=== PATIENT | male | born 1955 | race Caucasian/White ===

== ENCOUNTER 2018-06-26 22:00 | Inpatient (IN) ==
[2018-06-26] MEDS ORDERED: NITROGLYCERIN SL 0.4 MG/TAB TAB ONE (22:13)
[2018-06-26] MEDS: NITROGLYCERIN SL 0.4 MG/TAB TAB SL PRN ×3 (22:15→22:25)
[2018-06-26 22:25] LABS: Basophils # (auto) 0.09 K/uL (0-0.2); Basophils % (auto) 1.1 %; Hematocrit (blood only) 30.2 % (42-52); Hemoglobin 9.9 g/dL (14.0-18.0); Immature Granulocytes # (auto) 0.02 K/uL (0.00-0.02); Immature Granulocytes % (auto) 0.2 %; Lymphocytes # (auto) 2.76 K/uL (1.2-3.4); Lymphocytes % (auto) 32.9 %; Mean Corpuscular Hgb Conc 32.8 g/dL (32-36); Mean Corpuscular Volume 76.1 fL (80-100); Mean Platelet Volume 8.2 fL (7.4-10.4); Monocytes # (auto) 0.67 K/uL (0.11-0.59); Neutrophils # (auto) 4.35 K/uL (1.4-6.5); Neutrophils % (auto) 51.8 %; Platelet Count 474 K/uL (130-400); RDW Coefficient of Variation 17.1 % (11.5-14.5); RDW Standard Deviation 47.6 fL (36.4-46.3); Red Blood Count 3.97 M/uL (4.7-6.1); White Blood Count 8.39 K/uL (4.8-10.8)
--- NOTE | 2018-06-26 22:26 | XRay Report ---
XR chest 1V portable CLINICAL HISTORY: R/o OK chest pain COMPARISON STUDY: No previous studies for comparison. FINDINGS: The bones soft tissues and hemidiaphragms are normal. The cardiomediastinal silhouette is n ormal. The lungs are clear. The pulmonary vasculature is normal. IMPRESSION: Negative chest. The above report was generated using voice recognition software. It may contain grammatical, syntax or spelling errors. Electronically signed by: Luis Milner M.D. 06/26/2018 10:25 PM
[2018-06-26] MEDS ORDERED: ASPIRIN CHEW 324 MG PO STA (22:27)
[2018-06-26 22:32] LABS: iSTAT Creatinine 0.8 mg/dl (0.6-1.3); iSTAT Hemoglobin 10.9 g/dl (14.0-18.0); iSTAT Ionized Calcium 1.21 mmol/l (1.12-1.32)
[2018-06-26 22:46] LABS: Alanine Aminotransferase 22 U/L (12-78); Aspartate Aminotransferase 19 U/L (15-37); Blood Urea Nitrogen 15 mg/dl (7-18); Calcium 9.3 mg/dl (8.5-10.1); Carbon Dioxide 25 mmol/L (21-32); Chloride 105 mmol/L (98-107); Creatinine Clr Calc Pharmacy 83.3 ml/min; Est GFR (African American) 111.2; Est GFR (Non-African American) 95.9; Glucose 93 mg/dl (70-99); Sodium 138 mmol/L (136-145)
[2018-06-26 22:51] LABS: Albumin Globulin Ratio 1.2 (0.9-2); Alkaline Phosphatase 84 U/L (45-117); Bilirubin,Total 0.2 mg/dl (0.2-1); Globulin 3.5 gm/dl (2.5-4.0); Total Protein 7.5 gm/dl (6.4-8.2); Troponin I < 0.015 ng/ml (0-0.045)
[2018-06-26] MEDS ORDERED: Heparin IV Low Dose WITH Bolus IV STA (22:51)
[2018-06-26] MEDS ORDERED: NITROGLYCERIN SL 0.4 MG/TAB TAB SL STA (23:05)
[2018-06-26 23:13] LABS: INR 1.1 (0.9-1.1); Partial Thromboplastin Ratio 0.8; Partial Thromboplastin Time 22.6 Seconds (21.0-31.0); Prothrombin Time 10.9 Seconds (9.0-12.0)
[2018-06-26] MEDS ORDERED: HEPARIN SOD (PORCINE) 1000 UNIT/ML 10 ML VIAL ONE (23:22)
[2018-06-26] MEDS ORDERED: HEPARIN 25000 UNIT/500 ML D5W IV ONE (23:22)
[2018-06-26] MEDS: NITROGLYCERIN/D5W 100MCG/ML 250 ML IV SCH (23:32)
--- NOTE | 2018-06-27 01:27 | Emergency Department Note ---
Entered by Shara Rider acting as a scribe for Herve Dao MD History of Present Illness General Chief complaint: Chest Pain Stated complaint: CHEST PAIN Source: patient Mode of arrival: ambulatory Limitations: no limitations History of Present Illness Provider complaint: Chest pain Onset (ago): hour(s) (around 1400 today) Location: chest (central) Radiation: neck (throat) and extremity (bilateral arms) Pain Consistency: + other (worsening) Current Pain Intensity: 7 Quality: + other (pain, pressure) Associated symptoms: + other (Denies: leg pain/swelling); no cough and no fever/chills Treatments prior to arrival: other (nitroglycerin) The patient is a 63 year old male with no significant past medical history who presents to the Emergency Room with complaints of worsening central chest pain starting around 1400 today. The patient reports that his chest pain radiated d own his bilateral arms and up into his throat. He states that taking nitroglycerin helped to alleviate his pain. He notes that he subsequently went to sleep but woke up around 2130 with pain again which taking nitroglycerin an hour prior to arrival failed to relieve. He reports that his pain is currently a 7/10 and that he feels as if "something is sitting on his chest." He denies any fevers, cough, and leg pain/swelling. He notes that he takes a baby aspirin every morning and that he had a stress test performed in [place] last week but has not yet received its results. Home Medications Home Medications Medication Instructions Recorded Confirmed Type 2 Unknown Meds 1 tab PO UD 06/26/18 06/26/18 History Bp Med 1 tab PO DAILY 06/26/18 06/26/18 History omeprazole 0 mg PO DAILY 06/26/18 06/26/18 History Allergies Allergy/AdvReac Type Severity Reaction Status Date / Time No Known Allergies Allergy Unverified 06/26/18 23:05 Past Med/Surg History Medical History No significant past medical history Social History Preferred Language: Georgian marital status: current occupational status: employed Feels Safe at Home: Yes Smoking Status: Current every day smoker Review of Systems See HPI for pertinent positives & negatives. and A total of 10 systems reviewed and were otherwise negative Physical Exam Vital Signs Vital Signs - 24 hr 06/26/18 22:09 06/26/18 22:10 06/26/18 22:15 Temperature 36.6 C Temperature Source Oral Sepsis Recent Fever Within 48 Hours No Sepsis New/Unexplained Change in Mental Status No Sepsis Action Taken by Nursing No Action Required Pulse Rate 89 Pulse Rate [Apical] 88 88 Pulse Rate from SpO2 Sensor Respiratory Rate 18 22 18 Respiratory Effort / Characteristics Non-Labored Spontaneous Non-Labored Spontaneous Respiratory Depth Normal Normal Respiratory Pattern Regular Regular Blood Pressure 163/101 H Blood Pressure [Left Arm] 163/101 H 146/97 H Blood Pressure Mean 121 Blood Pressure Mean [Left Arm] 121 113 Blood Pressure Position [Left Arm] Sitting Sitting Pulse Oximetry 100 99 100 Oxygen Delivery Method Room Air Room Air 06/26/18 22:24 06/26/18 22:30 06/26/18 23:00 Temperature Temperature Source Sepsis Recent Fever Within 48 Hours Sepsis New/Unexplained Change in Mental Status Sepsis Action Taken by Nursing Pulse Rate 88 Pulse Rate [Apical] 82 91 H Pulse Rate from SpO2 Sensor 88 Respiratory Rate 18 18 16 Respiratory Effort / Characteristics Non-Labored Spontaneous Non-Labored Spontaneous Respiratory Depth Normal Normal Respiratory Pattern Regular Regular Blood Pressure Blood Pressure [Left Arm] 131/79 125/76 Blood Pressure Mean Blood Pressure Mean [Left Arm] 96 92 Blood Pressure Position [Left Arm] Sitting Sitting Pulse Oximetry 95 95 99 Oxygen Delivery Method Room Air Room Air 06/26/18 23:02 06/26/18 23:05 06/26/18 23:10 Temperature Temperature Source Sepsis Recent Fever Within 48 Hours Sepsis New/Unexplained Change in Mental Status Sepsis Action Taken by Nursing Pulse Rate 86 87 87 Pulse Rate [Apical] Pulse Rate from SpO2 Sensor 88 85 80 Respiratory Rate 19 19 25 H Respiratory Effort / Characteristics Respiratory Depth Respiratory Pattern Blood Pressure 138/85 124/76 Blood Pressure [Left Arm] Blood Pressure Mean 102 92 Blood Pressure Mean [Left Arm] Blood Pressure Position [Left Arm] Pulse Oximetry 99 99 96 Oxygen Delivery Method 06/26/18 23:11 06/26/18 23:15 06/26/18 23:16 Temperature Temperature Source Sepsis Recent Fever Within 48 Hours Sepsis New/Unexplained Change in Mental Status Sepsis Action Taken by Nursing Pulse Rate 89 87 82 Pulse Rate [Apical] Pulse Rate from SpO2 Sensor Respiratory Rate 21 17 21 Respiratory Effort / Characteristics Respiratory Depth Respiratory Pattern Blood Pressure 117/75 135/76 Blood Pressure [Left Arm] Blood Pressure Mean 89 95 Blood Pressure Mean [Left Arm] Blood Pressure Position [Left Arm] Pulse Oximetry Oxygen Delivery Method 06/26/18 23:20 06/26/18 23:25 06/26/18 23:30 Temperature Temperature Source Sepsis Recent Fever Within 48 Hours Sepsis New/Unexplained Change in Mental Status Sepsis Action Taken by Nursing Pulse Rate 86 89 82 Pulse Rate [Apical] Pulse Rate from SpO2 Sensor Respiratory Rate 24 20 20 Respiratory Effort / Characteristics Respiratory Depth Respiratory Pattern Blood Pressure Blood Pressure [Left Arm] Blood Pressure Mean Blood Pressure Mean [Left Arm] Blood Pressure Position [Left Arm] Pulse Oximetry Oxygen Delivery Method 06/26/18 23:31 06/26/18 23:33 06/26/18 23:35 Temperature Temperature Source Sepsis Recent Fever Within 48 Hours Sepsis New/Unexplained Change in Mental Status Sepsis Action Taken by Nursing Pulse Rate 83 85 87 Pulse Rate [Apical] Pulse Rate from SpO2 Sensor Respiratory Rate 18 15 17 Respiratory Effort / Characteristics Respiratory Depth Respiratory Pattern Blood Pressure 137/79 139/84 Blood Pressure [Left Arm] Blood Pressure Mean 98 102 Blood Pressure Mean [Left Arm] Blood Pressure Position [Left Arm] Pulse Oximetry Oxygen Delivery Method 06/26/18 23:36 06/26/18 23:40 06/26/18 23:41 Temperature Temperature Source Sepsis Recent Fever Within 48 Hours Sepsis New/Unexplained Change in Mental Status Sepsis Action Taken by Nursing Pulse Rate 86 88 92 H Pulse Rate [Apical] Pulse Rate from SpO2 Sensor Respiratory Rate 16 22 20 Respiratory Effort / Characteristics Respiratory Depth Respiratory Pattern Blood Pressure 148/95 H 149/102 H Blood Pressure [Left Arm] Blood Pressure Mean 112 117 Blood Pressure Mean [Left Arm] Blood Pressure Position [Left Arm] Pulse Oximetry Oxygen Delivery Method 06/26/18 23:45 06/26/18 23:46 06/26/18 23:50 Temperature Temperature Source Sepsis Recent Fever Within 48 Hours Sepsis New/Unexplained Change in Mental Status Sepsis Action Taken by Nursing Pulse Rate 71 83 91 H Pulse Rate [Apical] Pulse Rate from SpO2 Sensor Respiratory Rate 21 23 20 Respiratory Effort / Characteristics Respiratory Depth Respiratory Pattern Blood Pressure 145/89 H Blood Pressure [Left Arm] Blood Pressure Mean 107 Blood Pressure Mean [Left Arm] Blood Pressure Position [Left Arm] Pulse Oximetry Oxygen Delivery Method 06/26/18 23:51 06/26/18 23:55 06/26/18 23:56 Temperature Temperature Source Sepsis Recent Fever Within 48 Hours Sepsis New/Unexplained Change in Mental Status Sepsis Action Taken by Nursing Pulse Rate 82 89 77 Pulse Rate [Apical] Pulse Rate from SpO2 Sensor Respiratory Rate 21 21 18 Respiratory Effort / Characteristics Respiratory Depth Respiratory Pattern Blood Pressure 141/84 H 142/81 H Blood Pressure [Left Arm] Blood Pressure Mean 103 101 Blood Pressure Mean [Left Arm] Blood Pressure Position [Left Arm] Pulse Oximetry Oxygen Delivery Method Room Air 06/27/18 00:00 06/27/18 00:01 06/27/18 00:05 Temperature Temperature Source Sepsis Recent Fever Within 48 Hours Sepsis New/Unexplained Change in Mental Status Sepsis Action Taken by Nursing Pulse Rate 81 82 82 Pulse Rate [Apical] Pulse Rate from SpO2 Sensor Respiratory Rate 19 19 19 Respiratory Effort / Characteristics Respiratory Depth Respiratory Pattern Blood Pressure 138/82 Blood Pressure [Left Arm] Blood Pressure Mean 100 Blood Pressure Mean [Left Arm] Blood Pressure Position [Left Arm] Pulse Oximetry 95 Oxygen Delivery Method Room Air 06/27/18 00:06 06/27/18 00:10 06/27/18 00:11 Temperature Temperature Source Sepsis Recent Fever Within 48 Hours Sepsis New/Unexplained Change in Mental Status Sepsis Action Taken by Nursing Pulse Rate 83 84 82 Pulse Rate [Apical] Pulse Rate from SpO2 Sensor Respiratory Rate 19 20 19 Respiratory Effort / Characteristics Respiratory Depth Respiratory Pattern Blood Pressure 123/90 128/83 Blood Pressure [Left Arm] Blood Pressure Mean 101 98 Blood Pressure Mean [Left Arm] Blood Pressure Position [Left Arm] Pulse Oximetry Oxygen Delivery Method 06/27/18 00:15 06/27/18 00:16 06/27/18 00:17 Temperature Temperature Source Sepsis Recent Fever Within 48 Hours Sepsis New/Unexplained Change in Mental Status Sepsis Action Taken by Nursing Pulse Rate 82 83 81 Pulse Rate [Apical] Pulse Rate from SpO2 Sensor Respiratory Rate 20 18 19 Respiratory Effort / Characteristics Respiratory Depth Respiratory Pattern Blood Pressure 132/77 Blood Pressure [Left Arm] Blood Pressure Mean 95 Blood Pressure Mean [Left Arm] Blood Pressure Position [Left Arm] Pulse Oximetry Oxygen Delivery Method 06/27/18 00:20 06/27/18 00:21 06/27/18 00:25 Temperature Temperature Source Sepsis Recent Fever Within 48 Hours Sepsis New/Unexplained Change in Mental Status Sepsis Action Taken by Nursing Pulse Rate 86 83 82 Pulse Rate [Apical] Pulse Rate from SpO2 Sensor Respiratory Rate 21 16 20 Respiratory Effort / Characteristics Respiratory Depth Respiratory Pattern Blood Pressure 129/79 Blood Pressure [Left Arm] Blood Pressure Mean 95 Blood Pressure Mean [Left Arm] Blood Pressure Position [Left Arm] Pulse Oximetry Oxygen Delivery Method 06/27/18 00:26 06/27/18 00:30 06/27/18 00:31 Temperature Temperature Source Sepsis Recent Fever Within 48 Hours Sepsis New/Unexplained Change in Mental Status Sepsis Action Taken by Nursing Pulse Rate 81 81 80 Pulse Rate [Apical] Pulse Rate from SpO2 Sensor Respiratory Rate 19 20 19 Respiratory Effort / Characteristics Respiratory Depth Respiratory Pattern Blood Pressure 128/75 130/74 Blood Pressure [Left Arm] Blood Pressure Mean 92 92 Blood Pressure Mean [Left Arm] Blood Pressure Position [Left Arm] Pulse Oximetry Oxygen Delivery Method 06/27/18 00:35 06/27/18 00:36 06/27/18 00:40 Temperature Temperature Source Sepsis Recent Fever Within 48 Hours Sepsis New/Unexplained Change in Mental Status Sepsis Action Taken by Nursing Pulse Rate 75 78 76 Pulse Rate [Apical] Pulse Rate from SpO2 Sensor Respiratory Rate 19 19 20 Respiratory Effort / Characteristics Respiratory Depth Respiratory Pattern Blood Pressure 113/74 Blood Pressure [Left Arm] Blood Pressure Mean 87 Blood Pressure Mean [Left Arm] Blood Pressure Position [Left Arm] Pulse Oximetry Oxygen Delivery Method 06/27/18 00:41 06/27/18 00:45 06/27/18 00:46 Temperature Temperature Source Sepsis Recent Fever Within 48 Hours Sepsis New/Unexplained Change in Mental Status Sepsis Action Taken by Nursing Pulse Rate 73 75 70 Pulse Rate [Apical] Pulse Rate from SpO2 Sensor Respiratory Rate 18 18 18 Respiratory Effort / Characteristics Respiratory Depth Respiratory Pattern Blood Pressure 103/66 102/70 Blood Pressure [Left Arm] Blood Pressure Mean 78 80 Blood Pressure Mean [Left Arm] Blood Pressure Position [Left Arm] Pulse Oximetry Oxygen Delivery Method 06/27/18 00:47 06/27/18 00:50 06/27/18 00:51 Temperature Temperature Source Sepsis Recent Fever Within 48 Hours Sepsis New/Unexplained Change in Mental Status Sepsis Action Taken by Nursing Pulse Rate 72 73 85 Pulse Rate [Apical] Pulse Rate from SpO2 Sensor Respiratory Rate 19 19 14 Respiratory Effort / Characteristics Respiratory Depth Respiratory Pattern Blood Pressure 107/65 Blood Pressure [Left Arm] Blood Pressure Mean 79 Blood Pressure Mean [Left Arm] Blood Pressure Position [Left Arm] Pulse Oximetry Oxygen Delivery Method 06/27/18 00:55 06/27/18 00:56 06/27/18 01:00 Temperature Temperature Source Sepsis Recent Fever Within 48 Hours Sepsis New/Unexplained Change in Mental Status Sepsis Action Taken by Nursing Pulse Rate 74 80 79 Pulse Rate [Apical] Pulse Rate from SpO2 Sensor Respiratory Rate 19 17 19 Respiratory Effort / Characteristics Respiratory Depth Respiratory Pattern Blood Pressure 126/77 Blood Pressure [Left Arm] Blood Pressure Mean 93 Blood Pressure Mean [Left Arm] Blood Pressure Position [Left Arm] Pulse Oximetry Oxygen Delivery Method 06/27/18 01:01 06/27/18 01:05 06/27/18 01:06 Temperature Temperature Source Sepsis Recent Fever Within 48 Hours Sepsis New/Unexplained Change in Mental Status Sepsis Action Taken by Nursing Pulse Rate 77 82 78 Pulse Rate [Apical] Pulse Rate from SpO2 Sensor Respiratory Rate 19 16 19 Respiratory Effort / Characteristics Respiratory Depth Respiratory Pattern Blood Pressure 119/78 112/77 Blood Pressure [Left Arm] Blood Pressure Mean 91 88 Blood Pressure Mean [Left Arm] Blood Pressure Position [Left Arm] Pulse Oximetry 96 Oxygen Delivery Method Room Air 06/27/18 01:10 06/27/18 01:11 06/27/18 01:15 Temperature Temperature Source Sepsis Recent Fever Within 48 Hours Sepsis New/Unexplained Change in Mental Status Sepsis Action Taken by Nursing Pulse Rate 74 76 77 Pulse Rate [Apical] Pulse Rate from SpO2 Sensor Respiratory Rate 19 19 21 Respiratory Effort / Characteristics Respiratory Depth Respiratory Pattern Blood Pressure 119/70 Blood Pressure [Left Arm] Blood Pressure Mean 86 Blood Pressure Mean [Left Arm] Blood Pressure Position [Left Arm] Pulse Oximetry Oxygen Delivery Method 06/27/18 01:16 06/27/18 01:20 06/27/18 01:21 Temperature Temperature Source Sepsis Recent Fever Within 48 Hours Sepsis New/Unexplained Change in Mental Status Sepsis Action Taken by Nursing Pulse Rate 76 78 74 Pulse Rate [Apical] Pulse Rate from SpO2 Sensor Respiratory Rate 19 21 16 Respiratory Effort / Characteristics Respiratory Depth Respiratory Pattern Blood Pressure 115/67 123/73 Blood Pressure [Left Arm] Blood Pressure Mean 83 89 Blood Pressure Mean [Left Arm] Blood Pressure Position [Left Arm] Pulse Oximetry Oxygen Delivery Method Constitutional: Vital signs reviewed. Eyes: Pupils are equal round reactive to light. Conjunctiva are noninjected. ENT: Pharynx is clear without erythema or exudate. Mucous membranes are moist. Neck supple without meningeal signs. Respiratory: Clear to auscultation bilaterally. Breath sounds are equal bilaterally. Cardiovascular: Regular rate and rhythm. No rubs or gallops. GI: Soft, nondistended and nontender. Bowel sounds are present. Musculoskeletal: No peripheral edema. No lower extremity tenderness. Integumentary: No cyanosis. Neurological: The patient is awake and alert. No focal deficits. Psychiatric: Anxious appearing. Course 2209: The patient was evaluated in room A1, and a complete history and physical examination were performed. 2225: I checked on the patient and his pain is down to a 3/10 after the second nitroglycerin. 2228: Upon reevaluation, the patient's chest pain is gone after the third n itroglycerin. I recommended Heparin and discussed the benefits of Heparin with the patient. I also recommended hospitalization. 2302: I checked on the patient and he is complaining of chest pain again. 2310: The patient reported that he is feeling better with nitroglycerin. The patient briefly went into bigeminy at this time. 2314: I checked on the patient and his chest pain has resolved. I reviewed the patient's case with Lesley Paniagua. and he agrees to discussion with cardiology. I paged Dr. Mcguire. 2319: I reviewed the patient's case with Jonatan Odom. He recommended putting the patient on a low dose nitroglycerin drip and trying to keep the patient chest pain free. He stated that no intervention is currently needed. 2345: I reevaluated the patient and he is having chest pain again. He is currently receiving a nitroglycerin drip and Heparin. I ordered another troponin. I spoke to Dr. Phillips and he will evaluate the patient for further management. 2355: I checked on the patient and his chest pain is improving. Consultations Consultation #1: I reviewed the patient's case with Lesley Paniagua. and he agrees to discussion with cardiology. I paged Dr. Mcguire. Time: 23:14 Consultation #2: I reviewed the patient's case with Jonatan Odom. He recommended putting the patient on a low dose nitroglycerin drip and trying to keep the patient chest pain free. He stated that no intervention is currently needed. Time: 23:19 Consultation #3: I spoke to Dr. Palepu and he will evaluate the patient for further management. Time: 23:45 Administered Medications Nitroglycerin/Dextrose (Nitroglycerin/D5w 100 Mcg/Ml) 250 mls @ 0 mls/hr IV .Q0M ON LICENSE OF [facility]; Protocol Stop: 07/26/18 23:29 Last Admin: 06/26/18 23:32 Dose: 5 mcg/min, 3 mls/hr Documented by: [id number] Cosigned by: [id number] Nitroglycerin (Nitrostat) 0.4 mg SL UD PRN PRN Reason: Chest Pain Stop: 07/26/18 22:12 Last Admin: 06/26/18 22:25 Dose: 0.4 mg Documented by: [id number] Admin: 06/26/18 22:20 Dose: 0.4 mg Documented by: [id number] Admin: 06/26/18 22:15 Dose: 0.4 mg Documented by: [id number] Discontinued Medications Aspirin (Aspirin) 324 mg PO NOW STA Stop: 06/26/18 22:28 Last Admin: 06/26/18 22:33 Dose: 324 mg Documented by: [id number] Heparin Sodium (Porcine) (Heparin Iv Bolus) Confirm Administered Dose 10,000 units .ROUTE .STK-MED ONE Stop: 06/26/18 23:23 Last Admin: 06/26/18 23:29 Dose: 4,000 units Documented by: [id number] Cosigned by: [id number] Heparin Sodium/Dextrose () 1 ea IV NOW [facility]; Protocol Stop: 06/26/18 22:52 Last Admin: 06/26/18 23:31 Dose: 1 ea Documented by: [id number] Heparin Sodium/Dextrose (Heparin Sodium/Dextrose) Confirm Administered Dose 25,000 units IV .STK-MED ONE Stop: 06/26/18 23:23 Last Admin: 06/26/18 23:28 Dose: 750 units Documented by: [id number] Cosigned by: [id number] Nitroglycerin (Nitrostat) Confirm Administered Dose 0.4 mg .ROUTE .STK-MED ONE Stop: 06/26/18 22:14 Last Admin: 06/26/18 22:15 Dose: Not Given Documented by: [id number] Nitroglycerin (Nitrostat) 0.4 mg SL NOW STA Stop: 06/26/18 23:06 Last Admin: 06/26/18 23:05 Dose: 0.4 mg Documented by: [id number] Medical Decision Making Differential Diagnosis Differential diagnosis includes: SD, unstable angina, left main disease, GERD, pleurisy. Medical Records Attestation: I reviewed the patient's medical records. I did perform a limited focused review of portions of the patient's old chart on the electronic medical record. The patient has had no recent pertinent visits to this hospital. Home Medications Current Medication List: was personally reviewed by me Laboratory Data Attestation: I reviewed the patient's lab results. Result diagrams: 06/26/18 22:14 06/26/18 22:14 Lab Results 06/26/18 06/26/18 06/26/18 Range/Units 22:14 22:14 22:14 WBC 8.39 (4.8-10.8) K/uL RBC 3.97 L (4.7-6.1) M/uL Hgb 9.9 L (14.0-18.0) g/dL POC Hgb (14.0-18.0) g/dl Hct 30.2 L (42-52) % POC Hct (42-52) % MCV 76.1 L (80-100) fL MCH 24.9 L (25-34) pg MCHC 32.8 (32-36) g/dL RDW Std Deviation 47.6 H (36.4-46.3) fL RDW Coeff of Bianca 17.1 H (11.5-14.5) % Plt Count 474 H (130-400) K/uL MPV 8.2 (7.4-10.4) fL Immature Gran % (Auto) 0.2 % Neut % (Auto) 51.8 % Lymph % (Auto) 32.9 % Crosby % (Auto) 8.0 % Eos % (Auto) 6.0 % Baso % (Auto) 1.1 % Immature Gran # (Auto) 0.02 (0.00-0.02) K/uL Neut # (Auto) 4.35 (1.4-6.5) K/uL Lymph # (Auto) 2.76 (1.2-3.4) K/uL Crosby # (Auto) 0.67 H (0.11-0.59) K/uL Eos # (Auto) 0.50 (0-0.5) K/uL Baso # (Auto) 0.09 (0-0.2) K/uL PT 10.9 (9.0-12.0) Seconds INR 1.1 (0.9-1.1) APTT 22.6 (21.0-31.0) Seconds PTT Ratio 0.8 POC Sodium (135-144) mEq/L Sodium 138 (136-145) mmol/L POC Potassium (3.3-5.0) mEq/L Potassium 4.0 (3.5-5.1) mmol/L POC Chloride (101-112) mEq/L Chloride 105 (98-107) mmol/L Carbon Dioxide 25 (21-32) mmol/L POC Total CO2 (24-31) mEq/l Anion Gap 8.0 (3-11) POC Anion Gap (16-25) mmol/L POC BUN (7-18) mg/dl BUN 15 (7-18) mg/dl Creatinine 0.81 (0.6-1.4) mg/dl POC Creatinine (0.6-1.3) mg/dl Est Cr Clr Drug Dosing 83.3 ml/min Est GFR ( Amer) 111.2 Est GFR (Non-Af Amer) 95.9 BUN/Creatinine Ratio 18.0 (10-20) Glucose 93 (70-99) mg/dl POC Glucose (other) (70-99) mg/dl Calcium 9.3 (8.5-10.1) mg/dl POC Ioniz Calcium Elsy (1.12-1.32) mmol/l Total Bilirubin 0.2 (0.2-1) mg/dl AST 19 (15-37) U/L ALT 22 (12-78) U/L Alkaline Phosphatase 84 (45-117) U/L POC Troponin I (0-0.045) ng/ml Troponin I < 0.015 (0-0.045) ng/ml Total Protein 7.5 (6.4-8.2) gm/dl Albumin 4.0 (3.4-5.0) gm/dl Globulin 3.5 (2.5-4.0) gm/dl Albumin/Globulin Ratio 1.2 (0.9-2) Lipase 247 (73-393) U/L 06/26/18 06/26/18 06/26/18 Range/Units 22:17 22:19 23:47 WBC (4.8-10.8) K/uL RBC (4.7-6.1) M/uL Hgb (14.0-18.0) g/dL POC Hgb 10.9 L (14.0-18.0) g/dl Hct (42-52) % POC Hct 32 L (42-52) % MCV (80-100) fL MCH (25-34) pg MCHC (32-36) g/dL RDW Std Deviation (36.4-46.3) fL RDW Coeff of Bianca (11.5-14.5) % Plt Count (130-400) K/uL MPV (7.4-10.4) fL Immature Gran % (Auto) % Neut % (Auto) % Lymph % (Auto) % Crosby % (Auto) % Eos % (Auto) % Baso % (Auto) % Immature Gran # (Auto) (0.00-0.02) K/uL Neut # (Auto) (1.4-6.5) K/uL Lymph # (Auto) (1.2-3.4) K/uL Crosby # (Auto) (0.11-0.59) K/uL Eos # (Auto) (0-0.5) K/uL Baso # (Auto) (0-0.2) K/uL PT (9.0-12.0) Seconds INR (0.9-1.1) APTT (21.0-31.0) Seconds PTT Ratio POC Sodium 138 (135-144) mEq/L Sodium (136-145) mmol/L POC Potassium 4.0 (3.3-5.0) mEq/L Potassium (3.5-5.1) mmol/L POC Chloride 102 (101-112) mEq/L Chloride (98-107) mmol/L Carbon Dioxide (21-32) mmol/L POC Total CO2 24 (24-31) mEq/l Anion Gap (3-11) POC Anion Gap 18.0 (16-25) mmol/L POC BUN 14 (7-18) mg/dl BUN (7-18) mg/dl Creatinine (0.6-1.4) mg/dl POC Creatinine 0.8 (0.6-1.3) mg/dl Est Cr Clr Drug Dosing ml/min Est GFR ( Amer) Est GFR (Non-Af Amer) BUN/Creatinine Ratio (10-20) Glucose (70-99) mg/dl POC Glucose (other) 98 (70-99) mg/dl Calcium (8.5-10.1) mg/dl POC Ioniz Calcium Elsy 1.21 (1.12-1.32) mmol/l Total Bilirubin (0.2-1) mg/dl AST (15-37) U/L ALT (12-78) U/L Alkaline Phosphatase (45-117) U/L POC Troponin I < 0.03 < 0.03 (0-0.045) ng/ml Troponin I (0-0.045) ng/ml Total Protein (6.4-8.2) gm/dl Albumin (3.4-5.0) gm/dl Globulin (2.5-4.0) gm/dl Albumin/Globulin Ratio (0.9-2) Lipase (73-393) U/L Imaging Data Radiologist's Impression: Radiology results as stated below per my review and the radiologist's interpretation: XR chest 1V portable CLINICAL HISTORY: R/o SD chest pain COMPARISON STUDY: No previous studies for comparison. FINDINGS: The bones soft tissues and hemidiaphragms are normal. The cardiom ediastinal silhouette is normal. The lungs are clear. The pulmonary vasculature is normal. IMPRESSION: Negative chest. The above report was generated using voice recognition software. It may contain grammatical, syntax or spelling errors. Electronically signed by: Luis Milner M.D. 06/26/2018 10:25 PM ECG Data Attestation: I personally reviewed and interpreted this ECG as follows: Indication: chest pain Rate (beats per minute): 85 Rhythm: normal sinus Findings: + ST depression (V4-V6, inferior leads) and + ST elevation (slight elevation in AVR); no PVC Additional Comments: 2nd EKG findings: Normal sinus rhythm, 93 BPM, persistent ST depressions as described but ot a lesser degree than previous EKG. No ST elevation in AVR. 3rd EKG findings: Normal sinus rhythm, 78 BPM, peaked T waves anteriorly with slight ST depressions in the lateral and high lateral leads. Other ST depressions have not resolved. 4th EKG findings: Normal sinus rhythm, persistent ST depressions laterally. Blood Pressure Blood Pressure Findings: Elevated blood pressure Blood Pressure Disposition: further management by hospitalist VIKA Caal I was called emergently into the trauma resuscitation room to evaluate the patient. I did evaluate the patient as noted above. The patient is presenting with chest pain. IV access was established. The patient was placed on a continuous night monitor. I did treat the patient with sublingual nitroglycerin. I did order and personally review the patient's 12-lead EKG as described above. His twelve-lead EKG shows significant ST depressions as noted above. I did perform several more twelve-lead EKGs as described above. His pain eventually resolved after being given 3 sublingual nitroglycerin. I did order and personally reviewed the images of the patient's chest x-ray as described above. There is no evidence of acute cardiopulmonary process. I did order and review the patient's blood work as noted in the electronic medical record. Troponin is negative. He does have anemia. I did put him on a heparin drip after discussing risks and benefits. He was also given aspirin. He had recurrent chest pain and so another twelve-lead EKG was performed. He was given nitroglycerin after which it resolved. I did discuss case with the hospitalist and registered nurse hh case manager. I did speak to Dr. Mcguire of cardiology who reviewed the EKGs at home. He recommended putting the patient on a nitroglycerin drip. I did discuss this with the hospitalist. The patient was placed on a nitroglycerin drip. He subsequently developed more chest pain which was controlled after the drip was titrated up. A second troponin was obtained which was 0. I did reassess the patient again and he is no longer having any chest discomfort. Impression & Plan Acute coronary syndrome Critical Care Time I have personally spent 45 minutes of critical care time in the direct management of this patient. This includes bedside care, interpretation of diagnostic studies, and testing, discussion with consultants, patient, and family members, and other required patient management activities. This 45 minutes is in excess of all separately billable procedures. Critical Care Time: Yes Total Critical Care Time: 45 Discharge Plan Visit Data Chief Complaint: Chest Pain Stated Complaint: CHEST PAIN ED Provider: Herve Dao Discharge Problem: Acute coronary syndrome Patient Disposition: Admitted As Inpatient Forms Stand Alone Forms: Call Back Authorization, [facility] Prescriptions Prescriptions: No Action omeprazole 20 mg Tablet,Delayed Release (Dr/Ec) PO DAILY RF: 0 Bp Med 1 tab PO DAILY RF: 0 2 Unknown Meds 1 tab PO UD RF: 0 Referrals Referrals: CHALO SAUCEDO [Other] The scribe's documentation has been prepared under my direction and personally reviewed by me in its entirety. I confirm that the note above accurately reflects all work, treatment, procedures, and medical decision making performed by me.
[2018-06-27] MEDS ORDERED: ICU PROTOCOL FOR HYPERGLYCEMIA PRN (02:38)
[2018-06-27] MEDS ORDERED: Heparin IV Low Dose *NO* Bolus ONE (02:38)
[2018-06-27] MEDS ORDERED: Heparin Adult LOW DOSE Wt-Based Dextrose 5% 25,000 units/500 mL IV SCH ×2 (02:45→15:00)
[2018-06-27 03:57] LABS: Appearance Urine Clear (Clear); Bacteria Urine Automated Negative (Negative); Bilirubin Urine Negative (Negative); Blood Urine 3+ (Negative); Color Urine Yellow; Glucose Urine UA Negative (Negative); Ketones Urine Negative (Negative); Leukocyte Esterase Urine Negative (Negative); Nitrite Urine Negative (Negative); Protein Urine Trace (Negative); RBC Urine Automated >30 /hpf (0-4); Specific Gravity Urine 1.016 (1.000-1.030); Urobilinogen Urine Negative (Negative)
[2018-06-27 06:10] LABS: Basophils # (auto) 0.06 K/uL (0-0.2); Basophils % (auto) 0.8 %; Eosinophils # (auto) 0.49 K/uL (0-0.5); Eosinophils % (auto) 6.9 %; Hematocrit (blood only) 28.7 % (42-52); Hemoglobin 9.2 g/dL (14.0-18.0); Immature Granulocytes # (auto) 0.01 K/uL (0.00-0.02); Immature Granulocytes % (auto) 0.1 %; Lymphocytes # (auto) 2.37 K/uL (1.2-3.4); Lymphocytes % (auto) 33.3 %; Mean Corpuscular Hgb Conc 32.1 g/dL (32-36); Mean Corpuscular Volume 76.3 fL (80-100); Monocytes # (auto) 0.53 K/uL (0.11-0.59); Monocytes % (auto) 7.5 %; Neutrophils # (auto) 3.65 K/uL (1.4-6.5); Neutrophils % (auto) 51.4 %; Platelet Count 453 K/uL (130-400); RDW Standard Deviation 47.4 fL (36.4-46.3); Red Blood Count 3.76 M/uL (4.7-6.1); White Blood Count 7.11 K/uL (4.8-10.8)
[2018-06-27 06:18] LABS: Partial Thromboplastin Ratio 1.4; Partial Thromboplastin Time 37.3 Seconds (21.0-31.0)
[2018-06-27 06:37] LABS: Calcium 8.7 mg/dl (8.5-10.1); Creatinine Clr Calc Pharmacy 99.2 ml/min; Est GFR (African American) 120.9; Est GFR (Non-African American) 104.3; Potassium 4.3 mmol/L (3.5-5.1)
[2018-06-27 06:48] LABS: Troponin I 0.049 ng/ml (0-0.045)
[2018-06-27] MEDS ORDERED: HEPARIN IV BOLUS 4,000 UNITS in SYRINGE 0 ML IV ONE (07:00)
[2018-06-27] MEDS ORDERED: PERFLUTREN LIPID MICROSPHERE (DEFINITY) IV ONE (07:51)
--- NOTE | 2018-06-27 08:05 | History and Physical Report ---
DATE OF ADMISSION: 06/27/2018 CHIEF COMPLAINT: Chest pain. HISTORY OF PRESENT ILLNESS: This 63-year-old male with past medical history significant for hypertension, GERD, tobacco abuse, presents with chest pain. Patient states since last 1 month he is getting chest pains on and off. The pain comes on even when he is not doing anything, but it gets worse with exertion. It is sharp pain in the middle of the chest, today it was 9/10 in severity radiating to his left arm, so he came to the ER. Denies any sweating or shortness of breath or dizziness . No cough, no fever, no chills. No nausea and no abdominal pain. Denies any headache. No blurred visions. No earache, no runny nose, no sore throat, no difficulty swallowing. Normal bowel movements. No black stools, or blood in the stools, noticed some blood in the urine from last couple of days. No swelling in the legs. No rash. The patient required multiple dose of nitroglycerin sublingual. But his chest pain was coming back. EKG showed some ST changes. ER physician called pattern changer on-call and was advised for control of his chest pain and there is no emergent cardiac catheterization at this time. The patient was started on IV heparin and also on IV nitro drip. Currently, after starting nitro drip the pain got resolved. Currently resting comfortable and hemodynamically stable. ALLERGIES: No known drug allergies. PAST MEDICAL HISTORY: As mentioned above. PAST SURGICAL HISTORY: Negative for surgery. MEDICATIONS: The patient BP meds, Omeprazole. FAMILY HISTORY: Denies any family history. SOCIAL HISTORY: Used to smoke 2 packs day currently smoking half pack a day for many years. Alcohol here and there not regular. No illicit drug use. He lives alone. REVIEW OF SYMPTOMS: As per HPI. Rest of review of symptoms negative. PHYSICAL EXAMINATION: GENERAL: The patient is of moderate build, not in acute distress. VITAL SIGNS: Temperature 36.6, pulse 70, respiratory rate 18, blood pressure 102/70, oxygen 95% on room air. HEENT: No pallor, no icterus. Pupils equal, round, and reactive to light. NECK: No carotid bruits. CARDIOVASCULAR: S1, S2 heard, regular rate and rhythm, no murmur, no gallop. RESPIRATORY SYSTEM: Normal AP diameter. No accessory muscle use. There is no wheezing, no crackles. ABDOMEN: Soft, bowel sounds present. Nontender. No distention. CENTRAL NERVOUS SYSTEM: Cranial nerves II to XII are grossly intact. Nonfocal. EXTREMITIES: No edema, no erythema. LABORATORY DATA: WBC is 8.3, hemoglobin 9.9, hematocrit 30.2, platelets 474. PT 10.9, INR 1.1, APTT 22.6. Sodium 138, potassium 4, chloride 105, bicarbonate 25, BUN 15, creatinine 0.8, serum glucose 93, calcium 9.3, total bilirubin 0.2, AST 19, ALT 22, alkaline phosphatase 84. Troponin I less than 0.015. Lipase 247. Chest x-ray, negative chest. EKG: NSR with PVCs at a rate of 78, ST-T wave inversions in inferior leads and ST depression in leads V4 and V5 ASSESSMENT AND PLAN: This is a 63-year-old male who presents with chest pain and EKG changes. 1. Chest pain with EKG changes. Even after multiple nitro sl still has chest pain.in. He was started on nitro drip which helped his pain . Possible unstable angina. He was getting chest pain even at rest and worse with exertion. We will continue nitro drip. Continue Iv heparin. follow serial Ce and echo close monitor in ICU. Follow lipid profile.Will start on aspirin. 2. Hx of Hypertension. Currently, nitro drip . Will monitor. 3. Deep venous thrombosis prophylaxis. On iv heparin.. The patient was monitored in the ICU. Level 1 full code. MTDD
--- NOTE | 2018-06-27 08:46 | Hospitalist Progress Note ---
Date of Service June 27, 2018 Subjective H and P. A/P continued. Anemia Hematuria close monitor on iv heparin follow stool heme occult , iron studies, vitamin b12 and folate levels. Results & Data Vital Signs (Past 12 Hours) Vital Signs Temp Pulse Pulse Resp BP BP Pulse Ox 06/27/18 08:01 62 19 105/66 97 06/27/18 07:42 66 06/27/18 07:01 70 18 110/69 98 06/27/18 06:00 71 18 122/75 98 06/27/18 05:00 64 18 105/66 18 L 06/27/18 04:03 37.2 C 70 20 105/63 06/27/18 03:00 71 18 128/82 98 06/27/18 02:59 84 06/27/18 02:23 36.9 C 91 H 21 129/82 06/27/18 01:43 74 16 115/67 97 06/27/18 01:21 74 16 123/73 06/27/18 01:20 78 21 06/27/18 01:16 76 19 115/67 06/27/18 01:15 77 21 06/27/18 01:11 76 19 119/70 06/27/18 01:10 74 19 06/27/18 01:06 78 19 112/77 06/27/18 01:05 82 16 06/27/18 01:01 77 19 119/78 96 06/27/18 01:00 79 19 06/27/18 00:56 80 17 126/77 06/27/18 00:55 74 19 06/27/18 00:51 85 14 107/65 06/27/18 00:50 73 19 06/27/18 00:47 72 19 06/27/18 00:46 70 18 102/70 06/27/18 00:45 75 18 06/27/18 00:41 73 18 103/66 06/27/18 00:40 76 20 06/27/18 00:36 78 19 113/74 06/27/18 00:35 75 19 06/27/18 00:31 80 19 130/74 06/27/18 00:30 81 20 06/27/18 00:26 81 19 128/75 06/27/18 00:25 82 20 06/27/18 00:21 83 16 129/79 06/27/18 00:20 86 21 06/27/18 00:17 81 19 06/27/18 00:16 83 18 132/77 06/27/18 00:15 82 20 06/27/18 00:11 82 19 128/83 06/27/18 00:10 84 20 06/27/18 00:06 83 19 123/90 06/27/18 00:05 82 19 06/27/18 00:01 82 19 138/82 06/27/18 00:00 81 19 95 06/26/18 23:56 77 18 142/81 H 06/26/18 23:55 89 21 06/26/18 23:51 82 21 141/84 H 06/26/18 23:50 91 H 20 06/26/18 23:46 83 23 145/89 H 06/26/18 23:45 71 21 06/26/18 23:41 92 H 20 149/102 H 06/26/18 23:40 88 22 06/26/18 23:36 86 16 148/95 H 06/26/18 23:35 87 17 06/26/18 23:33 85 15 139/84 06/26/18 23:31 83 18 137/79 06/26/18 23:30 82 20 06/26/18 23:25 89 20 06/26/18 23:20 86 24 06/26/18 23:16 82 21 135/76 06/26/18 23:15 87 17 06/26/18 23:11 89 21 117/75 06/26/18 23:10 87 25 H 124/76 96 06/26/18 23:05 87 19 99 06/26/18 23:02 86 19 138/85 99 06/26/18 23:00 88 16 99 06/26/18 22:30 91 H 18 125/76 95 06/26/18 22:24 82 18 131/79 95 06/26/18 22:15 88 18 146/97 H 100 06/26/18 22:10 36.6 C 89 22 163/101 H 99 06/26/18 22:09 88 18 163/101 H 100
[2018-06-27] MEDS ORDERED: FAMOTIDINE 20 MG TAB PO SCH (09:00)
[2018-06-27] MEDS ORDERED: ASPIRIN 81 MG ECTAB PO SCH (09:00)
--- NOTE | 2018-06-27 09:02 | Cardiology Consultation ---
Date of Consultation June 27, 2018 Assessment & Plan (1) Elevated troponin: I believe that this is ACS until proven otherwise. I attempted this morning to wean the patient's nitroglycerin and his chest discomfort returned. Nitro was restarted. I believe the best option may be for the patient to be cathed on an urgent basis. I will discuss with the interventionalist. (2) Chest pain: I believe the patient has been having effort or activity related angina for several weeks to months before his presentation here. (3) Ischemic cardiomyopathy: The patient has wall motion abnormalities on the echocardiogram consistent ischemic cardiomyopathy. It appears that he has had a previous inferior infarct. His estimated left ventricular ejection fraction is around 35%. (4) Smoker: (5) Anemia: Anemia on presentation is certainly a concern especially since the patient is having active angina. His hemoglobin dropped from 9.6-9.2 since admission. I am concerned enough that I have stopped his anticoagulation. I would continue the antiplatelet agents. As mentioned above we will urgently perform a heart catheterization. (6) Hematuria: The patient was recently started on Plavix and aspirin and admits that he has been having hematuria for several days and perhaps several weeks. I will consult urology. 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 He has a history of hypertension and cigarette smoking. He has been noticing some mild chest discomfort over the past several weeks during activity. He presented with chest pain and has been admitted to the hospital. His EKGs would indicate a sinus rhythm with left ventricular hypertrophy and secondary ST and T wave changes. His first troponin was negative and his second is 0.046 which is a borderline elevation. The patient had prolonged chest pain even after admission to the emergency department and was started on a nitro drip. Multiple sublingual nitroglycerin did not have an effect and he was eventually started on IV nitroglycerin with his pain eventually resolving. He has had no chest pain since admission. He does relate a history of hematuria that started several days ago. He recent was started on a medication by his primary care physician in [place]. He is not a good historian. He thinks it may have been a blood thinner. We will try to obtain more information as well as his home medications from the pharmacy. He has no history of diabetes or hypercholesterolemia. Echocardiogram completed after admission indicates ischemic cardiomyopathy with a previous inferior, inferior apical and inferior septal infarct. Addendum: We were able to contact the patient's pharmacy. He is on isosorbide, Plavix and aspirin which were started recently. I believe these medications must of been started because of the patient's symptoms of chest pain or angina. Allergies Allergy/AdvReac Type Severity Reaction Status Date / Time No Known Allergies Allergy Unverified 06/26/18 23:05 Home Medications Home Medications Medication Instructions Recorded Confirmed Type 2 Unknown Meds 1 tab PO UD 06/26/18 06/26/18 History Bp Med 1 tab PO DAILY 06/26/18 06/26/18 History omeprazole 0 mg PO DAILY 06/26/18 06/26/18 History Patient History Medical History No significant past medical history Social History Preferred Language: Turkmen Communication Ability: Effective Director College Required: No Beliefs That Will Affect Care: None marital status: Current Living Situation: Alone current occupational status: employed Other Information That Helps Us Care for You: No Feels Safe at Home: Yes Safety Concerns: Feels Safe At This Time Smoking Status: Current every day smoker Tobacco Type: cigarettes Do You Dip or Chew Tobacco: No Second Hand Exposure: Yes Tobacco Cessation Education Requested by Patient: No Hx Alcohol Use: No Hx Substance Use: No Review of Systems Review of Systems: Review of Systems: See HPI for pertinent positives. All other 10 point review of systems are negative. Physical Exam Physical Exam: General: no acute distress and stated age Head: normocephalic, no masses, lesions, tenderness or abnormalities Eyes: conjunctiva are pink and non-injected, sclera clear Neck: supple, no adenopathy, no bruits, normal jugular venous pulse, no hepatojugular reflux Chest: normal shape and normal respiratory effort Lungs: clear to auscultation and percussion Cardiac Exam: - regular rate & rhythm, no murmurs gallops or rubs - normal S1, normal S2 Pulses: 2(+) throughout Abdomen: abdomen soft, non-tender, no abnormal masses and no hepatosplenomegaly Musculoskeletal: no gait disturbance, no joint inflammation, no deforming arthritis Extremities: no edema and no cyanosis Neuro: grossly normal exam Results & Data Vital Signs (Past 12 Hours) Vital Signs Temp Pulse Pulse Resp BP BP Pulse Ox 06/27/18 08:01 62 19 105/66 97 06/27/18 07:42 66 06/27/18 07:01 70 18 110/69 98 06/27/18 06:00 71 18 122/75 98 06/27/18 05:00 64 18 105/66 18 L 06/27/18 04:03 37.2 C 70 20 105/63 06/27/18 03:00 71 18 128/82 98 06/27/18 02:59 84 06/27/18 02:23 36.9 C 91 H 21 129/82 06/27/18 01:43 74 16 115/67 97 06/27/18 01:21 74 16 123/73 06/27/18 01:20 78 21 06/27/18 01:16 76 19 115/67 06/27/18 01:15 77 21 06/27/18 01:11 76 19 119/70 06/27/18 01:10 74 19 06/27/18 01:06 78 19 112/77 06/27/18 01:05 82 16 06/27/18 01:01 77 19 119/78 96 06/27/18 01:00 79 19 06/27/18 00:56 80 17 126/77 06/27/18 00:55 74 19 06/27/18 00:51 85 14 107/65 06/27/18 00:50 73 19 06/27/18 00:47 72 19 06/27/18 00:46 70 18 102/70 06/27/18 00:45 75 18 06/27/18 00:41 73 18 103/66 06/27/18 00:40 76 20 06/27/18 00:36 78 19 113/74 06/27/18 00:35 75 19 06/27/18 00:31 80 19 130/74 06/27/18 00:30 81 20 06/27/18 00:26 81 19 128/75 06/27/18 00:25 82 20 06/27/18 00:21 83 16 129/79 06/27/18 00:20 86 21 06/27/18 00:17 81 19 06/27/18 00:16 83 18 132/77 06/27/18 00:15 82 20 06/27/18 00:11 82 19 128/83 06/27/18 00:10 84 20 06/27/18 00:06 83 19 123/90 06/27/18 00:05 82 19 06/27/18 00:01 82 19 138/82 06/27/18 00:00 81 19 95 06/26/18 23:56 77 18 142/81 H 06/26/18 23:55 89 21 06/26/18 23:51 82 21 141/84 H 06/26/18 23:50 91 H 20 06/26/18 23:46 83 23 145/89 H 06/26/18 23:45 71 21 06/26/18 23:41 92 H 20 149/102 H 06/26/18 23:40 88 22 06/26/18 23:36 86 16 148/95 H 06/26/18 23:35 87 17 06/26/18 23:33 85 15 139/84 06/26/18 23:31 83 18 137/79 06/26/18 23:30 82 20 06/26/18 23:25 89 20 06/26/18 23:20 86 24 06/26/18 23:16 82 21 135/76 06/26/18 23:15 87 17 06/26/18 23:11 89 21 117/75 06/26/18 23:10 87 25 H 124/76 96 06/26/18 23:05 87 19 99 06/26/18 23:02 86 19 138/85 99 06/26/18 23:00 88 16 99 06/26/18 22:30 91 H 18 125/76 95 06/26/18 22:24 82 18 131/79 95 06/26/18 22:15 88 18 146/97 H 100 06/26/18 22:10 36.6 C 89 22 163/101 H 99 06/26/18 22:09 88 18 163/101 H 100
[2018-06-27] MEDS ORDERED: MoRPHine SULFATE 2 MG/ML CARP IV STA (09:11)
[2018-06-27] MEDS ORDERED: MoRPHine SULFATE 2 MG/ML CARP IV PRN (09:11)
[2018-06-27] MEDS ORDERED: NITROGLYCERIN/D5W 100MCG/ML 250 ML IV SCH (09:15)
[2018-06-27 09:23] LABS: Ferritin 8.3 ng/ml (8-388)
[2018-06-27] MEDS ORDERED: fentaNYL citrate 100 MCG/2 ML VIAL ONE (09:55)
[2018-06-27] MEDS ORDERED: NITROGLYCERIN/D5W 100MCG/ML 20ML SYR ONE (09:55)
[2018-06-27] MEDS ORDERED: MIDAZOLAM HCL 1 MG/ML 2ML VIAL ONE (09:55)
[2018-06-27] MEDS ORDERED: NiCARDipine HCL INJ 2.5 MG/ML 10 ML AMP ONE (09:55)
[2018-06-27] MEDS ORDERED: HEPARIN (PORCINE) 1000 UNIT/ML 10 ML (CATH LAB USE ONLY) ONE (09:55)
[2018-06-27] MEDS: NITROGLYCERIN/D5W 100MCG/ML 250 ML IV SCH (09:56)
[2018-06-27] MEDS ORDERED: ASPIRIN 81 MG CHEW ONE (10:01)
[2018-06-27 10:05] LABS: Folate (Folic Acid) 12.94 ng/ml (>5.38)
[2018-06-27] MEDS ORDERED: ADENOSINE IV SOLN 3 MG/ML 20 ML VIAL IV ONE (10:25)
[2018-06-27] MEDS: NITROGLYCERIN 2% OINTMENT 30GM TUBE EXT SCH ×2 (11:11→14:40)
--- NOTE | 2018-06-27 11:17 | Post Anesthesia Assessment ---
Date of Service June 27, 2018 Post Sedation Assessment Vital Signs Temp Pulse Pulse Resp BP BP Pulse Ox 06/27/18 09:42 75 18 129/69 95 06/27/18 09:01 68 12 127/79 99 06/27/18 08:01 62 19 105/66 97 06/27/18 07:42 66 06/27/18 07:01 70 18 110/69 98 06/27/18 06:00 71 18 122/75 98 06/27/18 05:00 64 18 105/66 18 L 06/27/18 04:03 37.2 C 70 20 105/63 06/27/18 03:00 71 18 128/82 98 06/27/18 02:59 84 06/27/18 02:23 36.9 C 91 H 21 129/82 06/27/18 01:43 74 16 115/67 97 06/27/18 01:21 74 16 123/73 06/27/18 01:20 78 21 06/27/18 01:16 76 19 115/67 06/27/18 01:15 77 21 06/27/18 01:11 76 19 119/70 06/27/18 01:10 74 19 06/27/18 01:06 78 19 112/77 06/27/18 01:05 82 16 06/27/18 01:01 77 19 119/78 96 06/27/18 01:00 79 19 06/27/18 00:56 80 17 126/77 06/27/18 00:55 74 19 06/27/18 00:51 85 14 107/65 06/27/18 00:50 73 19 06/27/18 00:47 72 19 06/27/18 00:46 70 18 102/70 06/27/18 00:45 75 18 06/27/18 00:41 73 18 103/66 06/27/18 00:40 76 20 06/27/18 00:36 78 19 113/74 06/27/18 00:35 75 19 06/27/18 00:31 80 19 130/74 06/27/18 00:30 81 20 06/27/18 00:26 81 19 128/75 06/27/18 00:25 82 20 06/27/18 00:21 83 16 129/79 06/27/18 00:20 86 21 06/27/18 00:17 81 19 06/27/18 00:16 83 18 132/77 06/27/18 00:15 82 20 06/27/18 00:11 82 19 128/83 06/27/18 00:10 84 20 06/27/18 00:06 83 19 123/90 06/27/18 00:05 82 19 06/27/18 00:01 82 19 138/82 06/27/18 00:00 81 19 95 06/26/18 23:56 77 18 142/81 H 06/26/18 23:55 89 21 06/26/18 23:51 82 21 141/84 H 06/26/18 23:50 91 H 20 06/26/18 23:46 83 23 145/89 H 06/26/18 23:45 71 21 06/26/18 23:41 92 H 20 149/102 H 06/26/18 23:40 88 22 06/26/18 23:36 86 16 148/95 H 06/26/18 23:35 87 17 06/26/18 23:33 85 15 139/84 06/26/18 23:31 83 18 137/79 06/26/18 23:30 82 20 06/26/18 23:25 89 20 06/26/18 23:20 86 24 06/26/18 23:16 82 21 135/76 06/26/18 23:15 87 17 06/26/18 23:11 89 21 117/75 06/26/18 23:10 87 25 H 124/76 96 06/26/18 23:05 87 19 99 06/26/18 23:02 86 19 138/85 99 06/26/18 23:00 88 16 99 06/26/18 22:30 91 H 18 125/76 95 06/26/18 22:24 82 18 131/79 95 06/26/18 22:15 88 18 146/97 H 100 06/26/18 22:10 36.6 C 89 22 163/101 H 99 06/26/18 22:09 88 18 163/101 H 100 Recovery Score Activity: Moves 4 extremities Respiration: Deep Breath/Cough Circulation: +/-20% PreAnes Value Consciousness: Fully Awake Oxygen Saturation: O2 needed for >90% Discharge Sedation Level of Care: Fast Track Phase II Post Sedation Plan On clinical assessment, the patient appears to have tolerated the sedation without complications. Patient is recovering as anticipated. Patient will continue to be monitored by nursing and may be discharged when sedation discharge criteria are met per below protocol. Upon Completions of procedure and additional 15 minutes continue every 5 minute vital signs and the P.A.R. score; then discharge to a Phase I or Fast Track to Phase II per the following guidelines: * Discharge Patient to appropriate Phase II area if PAR is 8 or greater or return to pre- procedure baseline. The post - procedure orders will be as directed. * If PAR score is less than 8 or not return to pre-procedure baseline then patient will follow Phase I monitoring till PAR is reached for Phase II. The Phase I may be done in procedure room or may call to secure a Phase I area. * If naloxone or flumazenil are used for reversal, hold in Phase I for continued monitoring from when last reversal dose was given for a minimum of 60 minutes or longer pending the nurse and/or physician discretion of patient condition before discharge to Phase II. Please call the Sedation Physician to re-evaluate and complete post-note for discharge to Phase II area. Do NOT discharge from procedure sedation or Phase 1 until post- sedation evaluation note is complete by procedure /sedation MD Sedation Discharge Instructions to be given to the patient at discharge to home.
--- NOTE | 2018-06-27 11:21 | Cardiac Catheterization ---
Cardiac Cath Procedure Full Procedure Date June 27, 2018 Pre-Procedure Diagnosis Pre-Procedure Diagnosis: Non STEMI AUC Score AUC Score: 8 Post-Procedure Diagnosis Post-Procedure Diagnosis: Severe CAD Procedure(s) Performed Procedure(s) Performed: Coronary Angiography, Left Heart Cath and Fractional Flow [place] [employer] Shady Mcguire MD Customer Marketing Assistant(s) Mirela Estimated Blood Loss Estimated Blood Loss: 15 Medication(s) Medication(s): Fentanyl, Heparin, Lidocaine 1%, Nicardipine, Nitroglycerin and Versed Summary of Findings Indication: High risk NSTEMI Access: 6 Fr right radial artery Catheters: [place], JR4, AR-1; [place] 3.5 guide Findings: LM -calcified, 20 to 30% ostial stenosis, 40 to 50% distal stenosis at bifurcation. Mild pressure dampening with catheter engagement LAD -heavily calcified, diffuse 50% proximal to mid disease, diffuse 60% disease after second diagonal Circumflex -hazy 99% ostial/proximal disease, mild to moderate mid segment disease. Large bifurcating OM 3 without significant disease. RCA -high, anterior, downward takeoff, dominant, calcified, diffuse moderate disease proximal to mid, subtotal occlusion in latemid segment. Diffuse distal disease. Ostium of PDA occluded. [id number] collaterals to right PLB's with competitive flow. LVEDP -9 LVEF35 to 40%, inferior akinesis FFR of LAD Left main cannulated with [place] 3.5 guide Straight FFR wire placed in the distal LAD IFR 0.65 Post procedure no apparent coronary complications Arterial Closure: TR band Summary: 1. Severe, heavily calcified, multivessel coronary artery disease - Moderate ostial, distal left main disease 50% diffuse proximal to mid disease, 60% diffuse disease after second diagonal (hemodynamic significant IFR 0.65). 99% hazy, calcified ostial/proximal circumflex Subtotal latemid RCA occlusion, occluded right PDA. Right PLB's fill partially via left to right collaterals 2. Normal intracardiac filling pressure 3. LVEF 35 to 40% with inferior akinesis Recommendations: Recommend transfer for evaluation of bypass surgery. Patient is previously received care from [facility] and wishes to return. Spoke with Dr. Mesa of cardiothoracic surgery who agrees to accept care of patient. In interim continue nitroglycerin infusion. Resume heparin infusion once TR band removed Discontinue clopidogrel Continue to monitor reported hematuria Hemodynamics Rest Ao:: 84/48/64 Final Ao: 105/56/76 LV: 96/9 Recommendations Recommendations: CABG Specimens Specimens: None Radiation Exposure (mGy) 2546 Contrast (mls) 140 Fluids (cc crystalloids) Fluids (cc crystalloids): 75 Drains Drains: none Anesthesia moderate Procedural Complication(s) None Disposition ICU ACC Data: Co Founder And Director Cardiac Status Clinical evaluation leading to the procedure CAD Presenation: Non STEMI Anginal Classification: CCS IV Heart Failure: No Cardiogenic Shock within 24 Hours: No Cardiac Arrest within 24 Hours: No Imaging Studies Past 6 Months: Yes Stress Studies Past 6 Months: No Diagnostic Physicians Name: Shady Mcguire MD Status: Urgent Closure Device Percutaneous Entry Location: Radial Closure Device: Radial Band Recommendations: CABG Intraprocedure Events Significant Disection: No Perforation: No
--- NOTE | 2018-06-27 11:34 | Critical Care Consultation ---
Date of Consultation June 27, 2018 Assessment & Plan (1) Acute coronary syndrome: Neuro- awake alert CV-HD stable. chest pain likely ACS. cath with multiple vessel disease. for possible transfer to evaluate for CABG. aspirin. pain controlled on nitroglycerin on very low dose. heparin after TR band removed. hold clopidogrel for possible surgery. echo with EF 35-39% Pulmonary- sat well on RA ID- no signs infection Renal- cr ok GI- diet as tolerated Heme- anemia with low MCV iron deficiency Endocrine- blood sugars controlled Dispo- ok to transfer to telemetry floor. for possible transfer for evaluation for CABG History of Present Illness Attending Physician: Chele Mustafa MD History of Present Illness 63 y/o male with HTN, GERD ?PVD who presents with chest pain. He has been having chest pain on and off for the past few weeks to months. The pain happens at any time sometimes with rest and sometimes with exertion. He denies associated shortness of breath. He presented last night with chest pain and found to have ST and T wave changes on ECG and was started on nitroglycerin for pain control. He is a poor historian. He was recently started on aspirin and clopidogrel. He has had hematuria as well. This mornign he was taken to the quality control lab tech and found to have multiple vessel disease. He had an echo which shows EF of 35-39% with wall motion abnormalities Allergies Allergy/AdvReac Type Severity Reaction Status Date / Time No Known Allergies Allergy Unverified 06/26/18 23:05 Home Medications Home Medications Medication Instructions Recorded Confirmed Type omeprazole 20 mg PO DAILY 06/26/18 06/27/18 History clopidogrel [Plavix] 75 mg PO DAILY 06/27/18 06/27/18 History felodipine 10 mg PO DAILY 06/27/18 06/27/18 History isosorbide mononitrate 30 mg PO DAILY 06/27/18 06/27/18 History nitroglycerin 0.4 mg SUBLINGUAL DIRECTED 06/27/18 06/27/18 History Patient History Medical History No significant past medical history Social History Preferred Language: Indonesian Communication Ability: Effective Platform Worker Required: No Beliefs That Will Affect Care: None marital status: Current Living Situation: Alone current occupational status: employed Other Information That Helps Us Care for You: No Feels Safe at Home: Yes Safety Concerns: Feels Safe At This Time Smoking Status: Current every day smoker Tobacco Type: cigarettes Do You Dip or Chew Tobacco: No Second Hand Exposure: Yes Tobacco Cessation Education Requested by Patient: No Hx Alcohol Use: No Hx Substance Use: No Review of Systems Review of Systems: Constitutional: no fevers no chills no weight loss Eyes: no blurry or double vision EENT: no sore throat, no congestion Respiratory: + cough no shortness of breath Cardiovascular: =+ chest pain no palpitations GI: no abdominal pain, no nausea, no vomiting, no diarrhea, no constipation Gu: no dysuria, no frequency MSK: no joint pain, no muscle aches Skin: no rash Neuro: no headache, no dizziness, no focal weakness Endocrine: no heat or cold intolerance heme: no easy bruising, no lymphadenopathy Psych: no depression, no anxiety Physical Exam Physical Exam: Constitutional: Comfortable NAD HEENT: normocephalic atraumatic. MMM. no cervical lymphadenopathy CV: RRR nl s1,s2 no murmurs rubs or gallops Lungs: clear to auscultation bilaterally. no accessory muscle use Abd: soft nontender nondistended. normal bowel sounds Ext: no edema. no cyanosis, no clubbing Skin: warm dry Neuro: alert and oriented. moving all extremities Psych: flat affect Results & Data Vital Signs (Past 12 Hours) Vital Signs Temp Pulse Pulse Resp BP BP Pulse Ox 06/27/18 09:42 75 18 129/69 95 06/27/18 09:01 68 12 127/79 99 06/27/18 08:01 62 19 105/66 97 06/27/18 07:42 66 06/27/18 07:01 70 18 110/69 98 06/27/18 06:00 71 18 122/75 98 06/27/18 05:00 64 18 105/66 18 L 06/27/18 04:03 37.2 C 70 20 105/63 06/27/18 03:00 71 18 128/82 98 06/27/18 02:59 84 06/27/18 02:23 36.9 C 91 H 21 129/82 06/27/18 01:43 74 16 115/67 97 06/27/18 01:21 74 16 123/73 06/27/18 01:20 78 21 06/27/18 01:16 76 19 115/67 06/27/18 01:15 77 21 06/27/18 01:11 76 19 119/70 06/27/18 01:10 74 19 06/27/18 01:06 78 19 112/77 06/27/18 01:05 82 16 06/27/18 01:01 77 19 119/78 96 06/27/18 01:00 79 19 06/27/18 00:56 80 17 126/77 06/27/18 00:55 74 19 06/27/18 00:51 85 14 107/65 06/27/18 00:50 73 19 06/27/18 00:47 72 19 06/27/18 00:46 70 18 102/70 06/27/18 00:45 75 18 06/27/18 00:41 73 18 103/66 06/27/18 00:40 76 20 06/27/18 00:36 78 19 113/74 06/27/18 00:35 75 19 06/27/18 00:31 80 19 130/74 06/27/18 00:30 81 20 06/27/18 00:26 81 19 128/75 06/27/18 00:25 82 20 06/27/18 00:21 83 16 129/79 06/27/18 00:20 86 21 06/27/18 00:17 81 19 06/27/18 00:16 83 18 132/77 06/27/18 00:15 82 20 06/27/18 00:11 82 19 128/83 06/27/18 00:10 84 20 06/27/18 00:06 83 19 123/90 06/27/18 00:05 82 19 06/27/18 00:01 82 19 138/82 06/27/18 00:00 81 19 95 06/26/18 23:56 77 18 142/81 H 06/26/18 23:55 89 21 06/26/18 23:51 82 21 141/84 H 06/26/18 23:50 91 H 20 06/26/18 23:46 83 23 145/89 H 06/26/18 23:45 71 21 06/26/18 23:41 92 H 20 149/102 H 06/26/18 23:40 88 22 06/26/18 23:36 86 16 148/95 H 06/26/18 23:35 87 17 06/26/18 23:33 85 15 139/84 Laboratory Results Laboratory Results - last 24 hr 06/26/18 06/26/18 06/26/18 22:14 22:14 22:14 WBC 8.39 RBC 3.97 L Hgb 9.9 L POC Hgb Hct 30.2 L POC Hct MCV 76.1 L MCH 24.9 L MCHC 32.8 RDW Std Deviation 47.6 H RDW Coeff of Bianca 17.1 H Plt Count 474 H MPV 8.2 Immature Gran % (Auto) 0.2 Neut % (Auto) 51.8 Lymph % (Auto) 32.9 Mclean % (Auto) 8.0 Eos % (Auto) 6.0 Baso % (Auto) 1.1 Immature Gran # (Auto) 0.02 Neut # (Auto) 4.35 Lymph # (Auto) 2.76 Mclean # (Auto) 0.67 H Eos # (Auto) 0.50 Baso # (Auto) 0.09 PT 10.9 INR 1.1 APTT 22.6 PTT Ratio 0.8 POC Sodium Sodium 138 POC Potassium Potassium 4.0 POC Chloride Chloride 105 Carbon Dioxide 25 POC Total CO2 Anion Gap 8.0 POC Anion Gap POC BUN BUN 15 Creatinine 0.81 POC Creatinine Est Cr Clr Drug Dosing 83.3 Est GFR ( Amer) 111.2 Est GFR (Non-Af Amer) 95.9 BUN/Creatinine Ratio 18.0 Glucose 93 POC Glucose POC Glucose (other) Calcium 9.3 POC Ioniz Calcium Elsy Magnesium Iron TIBC Ferritin Total Bilirubin 0.2 AST 19 ALT 22 Alkaline Phosphatase 84 POC Troponin I Troponin I < 0.015 Total Protein 7.5 Albumin 4.0 Globulin 3.5 Albumin/Globulin Ratio 1.2 Triglycerides Cholesterol LDL Cholesterol, Calc VLDL Cholesterol, Calc HDL Cholesterol Cholesterol/HDL Ratio Lipase 247 Vitamin B12 Folate Urine Color Urine Appearance Urine pH Ur Specific [place] Urine Protein Urine Glucose (UA) Urine Ketones Urine Blood Urine Nitrite Urine Bilirubin Urine Urobilinogen Ur Leukocyte Esterase Urine WBC (Auto) Urine RBC (Auto) U Hyaline Cast (Auto) U Epithel Cells (Auto) Urine Bacteria (Auto) Nasal Screen MRSA (PCR) 06/26/18 06/26/18 06/26/18 22:17 22:19 23:45 WBC RBC Hgb POC Hgb 10.9 L Hct POC Hct 32 L MCV MCH MCHC RDW Std Deviation RDW Coeff of Bianca Plt Count MPV Immature Gran % (Auto) Neut % (Auto) Lymph % (Auto) Mclean % (Auto) Eos % (Auto) Baso % (Auto) Immature Gran # (Auto) Neut # (Auto) Lymph # (Auto) Mclean # (Auto) Eos # (Auto) Baso # (Auto) PT INR APTT PTT Ratio POC Sodium 138 Sodium POC Potassium 4.0 Potassium POC Chloride 102 Chloride Carbon Dioxide POC Total CO2 24 Anion Gap POC Anion Gap 18.0 POC BUN 14 BUN Creatinine POC Creatinine 0.8 Est Cr Clr Drug Dosing Est GFR ( Amer) Est GFR (Non-Af Amer) BUN/Creatinine Ratio Glucose POC Glucose POC Glucose (other) 98 Calcium POC Ioniz Calcium Elsy 1.21 Magnesium Iron TIBC Ferritin Total Bilirubin AST ALT Alkaline Phosphatase POC Troponin I < 0.03 Troponin I Total Protein Albumin Globulin Albumin/Globulin Ratio Triglycerides Cholesterol LDL Cholesterol, Calc VLDL Cholesterol, Calc HDL Cholesterol Cholesterol/HDL Ratio Lipase Vitamin B12 Folate Urine Color Yellow Urine Appearance Clear Urine pH 7.0 Ur Specific [place] 1.016 Urine Protein Trace H Urine Glucose (UA) Negative Urine Ketones Negative Urine Blood 3+ H Urine Nitrite Negative Urine Bilirubin Negative Urine Urobilinogen Negative Ur Leukocyte Esterase Negative Urine WBC (Auto) 1-5 Urine RBC (Auto) >30 H U Hyaline Cast (Auto) 1-5 U Epithel Cells (Auto) 5-10 H Urine Bacteria (Auto) Negative Nasal Screen MRSA (PCR) 06/26/18 06/27/18 06/27/18 23:47 02:30 05:54 WBC RBC Hgb POC Hgb Hct POC Hct MCV MCH MCHC RDW Std Deviation RDW Coeff of Bianca Plt Count MPV Immature Gran % (Auto) Neut % (Auto) Lymph % (Auto) Mclean % (Auto) Eos % (Auto) Baso % (Auto) Immature Gran # (Auto) Neut # (Auto) Lymph # (Auto) Mclean # (Auto) Eos # (Auto) Baso # (Auto) PT INR APTT PTT Ratio POC Sodium Sodium 137 POC Potassium Potassium 4.3 POC Chloride Chloride 108 H Carbon Dioxide 27 POC Total CO2 Anion Gap 2.0 L POC Anion Gap POC BUN BUN 16 Creatinine 0.66 POC Creatinine Est Cr Clr Drug Dosing 99.2 Est GFR ( Amer) 120.9 Est GFR (Non-Af Amer) 104.3 BUN/Creatinine Ratio 24.0 H Glucose 86 POC Glucose POC Glucose (other) Calcium 8.7 POC Ioniz Calcium Elsy Magnesium 2.0 Iron TIBC Ferritin Total Bilirubin AST ALT Alkaline Phosphatase POC Troponin I < 0.03 Troponin I 0.049 H* Total Protein Albumin Globulin Albumin/Globulin Ratio Triglycerides 56 Cholesterol 157 LDL Cholesterol, Calc 93 VLDL Cholesterol, Calc 11 HDL Cholesterol 53 Cholesterol/HDL Ratio 3 Lipase Vitamin B12 Folate Urine Color Urine Appearance Urine pH Ur Specific [place] Urine Protein Urine Glucose (UA) Urine Ketones Urine Blood Urine Nitrite Urine Bilirubin Urine Urobilinogen Ur Leukocyte Esterase Urine WBC (Auto) Urine RBC (Auto) U Hyaline Cast (Auto) U Epithel Cells (Auto) Urine Bacteria (Auto) Nasal Screen MRSA (PCR) Negative 06/27/18 06/27/18 06/27/18 05:54 05:54 06:00 WBC 7.11 RBC 3.76 L Hgb 9.2 L POC Hgb Hct 28.7 L POC Hct MCV 76.3 L MCH 24.5 L MCHC 32.1 RDW Std Deviation 47.4 H RDW Coeff of Bianca 17.0 H Plt Count 453 H MPV 8.0 Immature Gran % (Auto) 0.1 Neut % (Auto) 51.4 Lymph % (Auto) 33.3 Mclean % (Auto) 7.5 Eos % (Auto) 6.9 Baso % (Auto) 0.8 Immature Gran # (Auto) 0.01 Neut # (Auto) 3.65 Lymph # (Auto) 2.37 Mclean # (Auto) 0.53 Eos # (Auto) 0.49 Baso # (Auto) 0.06 PT INR APTT 37.3 H PTT Ratio 1.4 POC Sodium Sodium POC Potassium Potassium POC Chloride Chloride Carbon Dioxide POC Total CO2 Anion Gap POC Anion Gap POC BUN BUN Creatinine POC Creatinine Est Cr Clr Drug Dosing Est GFR ( Amer) Est GFR (Non-Af Amer) BUN/Creatinine Ratio Glucose POC Glucose 96 POC Glucose (other) Calcium POC Ioniz Calcium Elsy Magnesium Iron TIBC Ferritin Total Bilirubin AST ALT Alkaline Phosphatase POC Troponin I Troponin I Total Protein Albumin Globulin Albumin/Globulin Ratio Triglycerides Cholesterol LDL Cholesterol, Calc VLDL Cholesterol, Calc HDL Cholesterol Cholesterol/HDL Ratio Lipase Vitamin B12 Folate Urine Color Urine Appearance Urine pH Ur Specific [place] Urine Protein Urine Glucose (UA) Urine Ketones Urine Blood Urine Nitrite Urine Bilirubin Urine Urobilinogen Ur Leukocyte Esterase Urine WBC (Auto) Urine RBC (Auto) U Hyaline Cast (Auto) U Epithel Cells (Auto) Urine Bacteria (Auto) Nasal Screen MRSA (PCR) 06/27/18 06/27/18 06/27/18 08:52 08:52 08:52 WBC RBC Hgb POC Hgb Hct POC Hct MCV MCH MCHC RDW Std Deviation RDW Coeff of Bianca Plt Count MPV Immature Gran % (Auto) Neut % (Auto) Lymph % (Auto) Mclean % (Auto) Eos % (Auto) Baso % (Auto) Immature Gran # (Auto) Neut # (Auto) Lymph # (Auto) Mclean # (Auto) Eos # (Auto) Baso # (Auto) PT INR APTT PTT Ratio POC Sodium Sodium POC Potassium Potassium POC Chloride Chloride Carbon Dioxide POC Total CO2 Anion Gap POC Anion Gap POC BUN BUN Creatinine POC Creatinine Est Cr Clr Drug Dosing Est GFR ( Amer) Est GFR (Non-Af Amer) BUN/Creatinine Ratio Glucose POC Glucose POC Glucose (other) Calcium POC Ioniz Calcium Elsy Magnesium Iron 48 TIBC 444 Ferritin 8.3 Total Bilirubin AST ALT Alkaline Phosphatase POC Troponin I Troponin I 0.051 H* Total Protein Albumin Globulin Albumin/Globulin Ratio Triglycerides Cholesterol LDL Cholesterol, Calc VLDL Cholesterol, Calc HDL Cholesterol Cholesterol/HDL Ratio Lipase Vitamin B12 422 Folate 12.94 Urine Color Urine Appearance Urine pH Ur Specific [place] Urine Protein Urine Glucose (UA) Urine Ketones Urine Blood Urine Nitrite Urine Bilirubin Urine Urobilinogen Ur Leukocyte Esterase Urine WBC (Auto) Urine RBC (Auto) U Hyaline Cast (Auto) U Epithel Cells (Auto) Urine Bacteria (Auto) Nasal Screen MRSA (PCR)
[2018-06-27 12:05] VITALS: TEMP 98.1
--- NOTE | 2018-06-27 12:44 | Urology Consultation ---
Date of Consultation June 27, 2018 Assessment & Plan (1) Hematuria: gross painless hematuria in a smoker needs a ct urogram and a cysto as an outpatient. Needs to wait until acute coronary issues resolved and recovered from. He is heading back to [facility] for CABG and would prefer to have all follow up there. He declines to make arrangements for follow up with me in [place]. I did carefully explain to patient that we are concerned his hematuria would be from kidney or bladder cancer and he needs to be worked up in the next 1-2 months. Present on Admission?: Yes History of Present Illness Reason for Consultation: hematuria Requesting Physician: Dr Aguilar Attending Physician: Chele Mustafa MD History of Present Illness I am asked by Dr Aguilar to evaluate and treat hematuria. Patient is admitted with acute coronary syndrome. He reports he has had gross hematuria on and off for 4 days. he has passed tiny clots the size of grains of rice. he has not had hematuria prior to 4 days ago. he is s lifelong smoker. He used to smoke 2 ppd ut has cut back to half pack per day. He has no kidney or bladder pain. he has no urinary stream problems He has not noted that the hematuria gets better or worse with the use of anticoagulants . He has sometimes red urine and sometimes yellow urine in the same day. Allergies Allergy/AdvReac Type Severity Reaction Status Date / Time No Known Allergies Allergy Unverified 06/26/18 23:05 Home Medications Home Medications Medication Instructions Recorded Confirmed Type omeprazole 20 mg PO DAILY 06/26/18 06/27/18 History clopidogrel [Plavix] 75 mg PO DAILY 06/27/18 06/27/18 History felodipine 10 mg PO DAILY 06/27/18 06/27/18 History isosorbide mononitrate 30 mg PO DAILY 06/27/18 06/27/18 History nitroglycerin 0.4 mg SUBLINGUAL DIRECTED 06/27/18 06/27/18 History Patient History Medical History No significant past medical history Social History Preferred Language: Polish Communication Ability: Effective 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 Beliefs That Will Affect Care: None marital status: Current Living Situation: Alone current occupational status: employed Other Information That Helps Us Care for You: No Feels Safe at Home: Yes Safety Concerns: Feels Safe At This Time Smoking Status: Current every day smoker Tobacco Type: cigarettes Do You Dip or Chew Tobacco: No Second Hand Exposure: Yes Tobacco Cessation Education Requested by Patient: No Hx Alcohol Use: No Hx Substance Use: No Review of Systems Review of Systems: PMH- CAD, MA, tobacco abuse NKDA Soc- , + children, 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 tobacco, beer few times per week ROS- + chest pain, + nausea, no rash, no seizures, no constipation, no fever or chills, no weakness or numbness Physical Exam Constitutional: WD/WN, vitals as above + thin Respiratory: normal respiratory effort, lungs clear to auscultation Cardiovascular: Rate/Rhythm: regular rate Gastrointestinal (Abdomen): normal bowel sounds, soft, nontender, no hepatosplenomegaly Skin: no rashes, warm and dry Lymphatic: no cervical or axillary lymphadenopathy Results & Data Vital Signs (Past 12 Hours) Vital Signs Temp Pulse Pulse Resp BP BP Pulse Ox 06/27/18 12:19 56 L 14 125/73 100 06/27/18 12:15 62 06/27/18 12:08 60 10 L 125/73 99 06/27/18 12:01 65 17 96/62 L 97 06/27/18 11:53 36.7 C 61 12 96/62 L 97 06/27/18 11:46 62 14 118/72 98 06/27/18 11:31 58 L 14 115/68 06/27/18 11:20 65 12 97/79 L 06/27/18 09:42 75 18 129/69 95 06/27/18 09:01 68 12 127/79 99 06/27/18 08:01 62 19 105/66 97 06/27/18 07:42 66 06/27/18 07:01 70 18 110/69 98 06/27/18 06:00 71 18 122/75 98 06/27/18 05:00 64 18 105/66 18 L 06/27/18 04:03 37.2 C 70 20 105/63 06/27/18 03:00 71 18 128/82 98 06/27/18 02:59 84 06/27/18 02:23 36.9 C 91 H 21 129/82 05/01/19 01:43 74 16 115/67 97 06/27/18 01:21 74 16 123/73 06/27/18 01:20 78 21 06/27/18 01:16 76 19 115/67 06/27/18 01:15 77 21 06/27/18 01:11 76 19 119/70 06/27/18 01:10 74 19 06/27/18 01:06 78 19 112/77 06/27/18 01:05 82 16 06/27/18 01:01 77 19 119/78 96 06/27/18 01:00 79 19 06/27/18 00:56 80 17 126/77 06/27/18 00:55 74 19 06/27/18 00:51 85 14 107/65 06/27/18 00:50 73 19 06/27/18 00:47 72 19 06/27/18 00:46 70 18 102/70 06/27/18 00:45 75 18 06/27/18 00:41 73 18 103/66 06/27/18 00:40 76 20
[2018-06-27 13:40] VITALS: BP 111/71
[2018-06-27 13:46] VITALS: O2SAT 98
[2018-06-27] MEDS ORDERED: Heparin IV Standard *NO* Bolus IV ONE (14:44)
--- NOTE | 2018-06-27 14:48 | Hospitalist Progress Note ---
Date of Service June 27, 2018 Assessment & Plan (1) Acute coronary syndrome: Chest pain; acute coronary syndrome, ischemic cardiomyopathy, Severe heavily calcified multivessel coronary artery disease, Cardiac Cath Summary: 1. Severe, heavily calcified, multivessel coronary artery disease - Moderate ostial, distal left main disease 50% diffuse proximal to mid disease, 60% diffuse disease after second diagonal (hemodynamic significant IFR 0.65). 99% hazy, calcified ostial/proximal circumflex Subtotal latemid RCA occlusion, occluded right PDA. Right PLB's fill partially via left to right collaterals 2. Normal intracardiac filling pressure 3. LVEF 35 to 40% with inferior akinesis transfer for evaluation of bypass surgery. Patient is previously received care from [facility] and wishes to return. Cardiology spoke with Dr. Mesa of cardiothoracic surgery who agrees to accept care of patient. In interim continue nitroglycerin infusion 15 mcg/min (250 ml q24 hours) Resume heparin IV 850 units/hour (17 ml/hr) Hypertension -nitro drip Tobacco abuse -tobacco use counseling will be needed Anemia Hematuria -Hgb is stable above 9 -Needs to wait until acute coronary issues resolved and recovered from before considering needs a CT urogram and a cystoscopy Discharge Diagnosis Chest pain; acute coronary syndrome, ischemic cardiomyopathy, Severe heavily calcified multivessel coronary artery disease, Tobacco abuse, Anemia, Hematuria, Hypertension Subjective Patient had chest pain when off nitro drip this AM and cardiology sent patient to cardiac cath which found multivessel coronary artery disease. Patient returned from cardiac cath without worsening chest pain but was explained that due to the severity of coronary artery disease that patient will need to be evaluated for cardiothoracic surgery for coronary artery bypass graft. Patient initially refusing transfer because he did not want to leave his car at [facility] parking lot. After some delay patient signed the transfer paper to go to [facility] for bypass evaluation Physical Exam Constitutional: WD/WN, vitals as above Eyes: PERRL, conjunctivae normal, anicteric sclerae EOM intact bilaterally ENMT: external ear and nose normal, oropharynx normal Neck: trachea midline, no thyromegaly normal visual inspection Respiratory: normal respiratory effort, lungs clear to auscultation Cardiovascular: RRR, no murmur, no edema Gastrointestinal (Abdomen): normal bowel sounds, soft, nontender, no hepatosplenomegaly Musculoskeletal: Head/Neck/Chest: normocephalic and head atraumatic Neurologic: PERRL, EOMI, accommodation nl, no face palsy, no dysarthria CN's II-XI intact bilaterally Psychiatric: A+Ox3, euthymic affect Results & Data Vital Signs (Past 12 Hours) Vital Signs Temp Pulse Pulse Resp BP BP Pulse Ox 06/27/18 13:45 74 06/27/18 13:31 59 L 13 111/71 98 06/27/18 13:30 57 L 51 L 14 111/71 97 06/27/18 13:01 57 L 16 115/69 96 06/27/18 12:31 61 16 120/70 97 06/27/18 12:19 56 L 14 125/73 100 06/27/18 12:15 62 06/27/18 12:08 60 10 L 125/73 99 06/27/18 12:01 65 17 96/62 L 97 06/27/18 11:53 36.7 C 61 12 96/62 L 97 06/27/18 11:46 62 14 118/72 98 06/27/18 11:31 58 L 14 115/68 06/27/18 11:20 65 12 97/79 L 06/27/18 09:42 75 18 129/69 95 06/27/18 09:01 68 12 127/79 99 06/27/18 08:01 62 19 105/66 97 06/27/18 07:42 66 06/27/18 07:01 70 18 110/69 98 06/27/18 06:00 71 18 122/75 98 06/27/18 05:00 64 18 105/66 18 L 06/27/18 04:03 37.2 C 70 20 105/63 06/27/18 03:00 71 18 128/82 98 06/27/18 02:59 84
--- NOTE | 2018-06-27 14:58 | Discharge Summary ---
Date of Service June 27, 2018 Admission HPI Per Admitting Provider DATE OF ADMISSION: 06/27/2018 CHIEF COMPLAINT: Chest pain. HISTORY OF PRESENT ILLNESS: This 63-year-old male with past medical history significant for hypertension, GERD, tobacco abuse, presents with chest pain. Patient states since last 1 month he is getting chest pains on and off. The pain comes on even when he is not doing anything, but it gets worse with exertion. It is sharp pain in the middle of the chest, today it was 9/10 in severity radiating to his left arm, so he came to the ER. Denies any sweating or shortness of breath or dizziness . No cough, no fever, no chills. No nausea and no abdominal pain. Denies any headache. No blurred visions. No earache, no runny nose, no sore throat, no difficulty swallowing. Normal bowel movements. No black stools, or blood in the stools, noticed some blood in the urine from last couple of days. No swelling in the legs. No rash. The patient required multiple dose of nitroglycerin sublingual. But his chest pain was coming back. EKG showed some ST changes. ER physician called billboard poster helper on-call and was advised for control of his chest pain and there is no emergent cardiac catheterization at this time. The patient was started on IV heparin and also on IV nitro drip. Currently, after starting nitro drip the pain got resolved. Currently resting comfortable and hemodynamically stable. ALLERGIES: No known drug allergies. PAST MEDICAL HISTORY: As mentioned above. PAST SURGICAL HISTORY: Negative for surgery. MEDICATIONS: The patient BP meds, Omeprazole. FAMILY HISTORY: Denies any family history. SOCIAL HISTORY: Used to smoke 2 packs day currently smoking half pack a day for many years. Alcohol here and there not regular. No illicit drug use. He lives alone. REVIEW OF SYMPTOMS: As per HPI. Rest of review of symptoms negative. LABORATORY DATA: WBC is 8.3, hemoglobin 9.9, hematocrit 30.2, platelets 474. PT 10.9, INR 1.1, APTT 22.6. Sodium 138, potassium 4, chloride 105, bicarbonate 25, BUN 15, creatinine 0.8, serum glucose 93, calcium 9.3, total bilirubin 0.2, AST 19, ALT 22, alkaline phosphatase 84. Troponin I less than 0.015. Lipase 247. Chest x-ray, negative chest. EKG: NSR with PVCs at a rate of 78, ST-T wave inversions in inferior leads and ST depression in leads V4 and V5 Admission Exam Per Admitting Provider PHYSICAL EXAMINATION: GENERAL: The patient is of moderate build, not in acute distress. VITAL SIGNS: Temperature 36.6, pulse 70, respiratory rate 18, blood pressure 102/70, oxygen 95% on room air. HEENT: No pallor, no icterus. Pupils equal, round, and reactive to light. NECK: No carotid bruits. CARDIOVASCULAR: S1, S2 heard, regular rate and rhythm, no murmur, no gallop. RESPIRATORY SYSTEM: Normal AP diameter. No accessory muscle use. There is no wheezing, no crackles. ABDOMEN: Soft, bowel sounds present. Nontender. No distention. CENTRAL NERVOUS SYSTEM: Cranial nerves II to XII are grossly intact. Nonfocal. EXTREMITIES: No edema, no erythema. Principal Diagnosis Chest pain; acute coronary syndrome, ischemic cardiomyopathy, Severe heavily calcified multivessel coronary artery disease, Tobacco abuse, Anemia, Hematuria, Hypertension Discharge Exam Constitutional WD/WN, vitals as above Eyes PERRL, conjunctivae normal, anicteric sclerae EOM intact bilaterally ENMT external ear and nose normal, oropharynx normal Neck trachea midline, no thyromegaly normal visual inspection Respiratory normal respiratory effort, lungs clear to auscultation Cardiovascular RRR, no murmur, no edema Gastrointestinal (Abdomen) normal bowel sounds, soft, nontender, no hepatosplenomegaly Musculoskeletal Head/Neck/Chest: normocephalic and head atraumatic Neurologic PERRL, EOMI, accommodation nl, no face palsy, no dysarthria CN's II-XI intact bilaterally Psychiatric A+Ox3, euthymic affect Discharge Data Allergies Allergy/AdvReac Type Severity Reaction Status Date / Time No Known Allergies Allergy Unverified 06/26/18 23:05 Consultations 06/26/18 22:56 ED Decision to Admit Stat 06/27/18 02:38 Consult Case Management - Discharge Planning Routine 06/27/18 08:00 Consult Cardiology Routine Consult Emergency Medical Technician Basic Routine 06/27/18 08:52 Consult Urology Routine Procedures Performed Operation Date: 06/27/18 09:00 Actual Procedures p Cath, Left with Cors and Vent - Bhaskar Mcguire MD s Cineradiography w/Routine Exam - Bhaskar Mcguire MD s Fraction Flow Solen SGL Ves - Bhaskar Mcguire MD Ordered Studies 06/27/18 09:48 CL Cath Imgs for PACS use only Routine Hospital Course (1) Acute coronary syndrome: Chest pain; acute coronary syndrome, ischemic cardiomyopathy, Severe heavily calcified multivessel coronary artery disease, Cardiac Cath Summary: 1. Severe, heavily calcified, multivessel coronary artery disease - Moderate ostial, distal left main disease 50% diffuse proximal to mid disease, 60% diffuse disease after second diagonal (hemodynamic significant IFR 0.65). 99% hazy, calcified ostial/proximal circumflex Subtotal latemid RCA occlusion, occluded right PDA. Right PLB's fill partially via left to right collaterals 2. Normal intracardiac filling pressure 3. LVEF 35 to 40% with inferior akinesis transfer for evaluation of bypass surgery. Patient is previously received care from [facility] and wishes to return. Cardiology spoke with Dr. Mesa of cardiothoracic surgery who agrees to accept care of patient. In interim continue nitroglycerin infusion 15 mcg/min (250 ml q24 hours) Resume heparin IV 850 units/hour (17 ml/hr) Hypertension -nitro drip Tobacco abuse -tobacco use counseling will be needed Anemia Hematuria -Hgb is stable above 9 -Needs to wait until acute coronary issues resolved and recovered from before considering needs a CT urogram and a cystoscopy Discharge Diagnosis Chest pain; acute coronary syndrome, ischemic cardiomyopathy, Severe heavily calcified multivessel coronary artery disease, Tobacco abuse, Anemia, Hematuria, Hypertension Total Time Total Time Spent Total Time Spent (In Minutes): 40 minutes Total Time Includes: Examination of the Patient, Discharge Planning, Medication Reconciliation and Communication With Other Providers Discharge Plan Discharge Items Patient Disposition: Transfer Acute Care Hospital Reason For Visit: CHEST PAIN Discharge Diagnosis: Chest pain; acute coronary syndrome, ischemic cardiomyopathy, Severe heavily calcified multivessel coronary artery disease, Tobacco abuse, Anemia, Hematuria, Hypertension Condition: Fair Discharge Goals: Improve disease control Activity: Per 'Additional Instructions' section Non-emergency contact: Lawn Mower Call non-emergency contact if: you have any medication questions Follow-up/Referrals: Shayna Tyson MD [Primary Care Provider] - Diet: Nothing by mouth Addtl Provider Instructions: Cardiac Cath Summary: 1. Severe, heavily calcified, multivessel coronary artery disease - Moderate ostial, distal left main disease 50% diffuse proximal to mid disease, 60% diffuse disease after second diagonal (hemodynamic significant IFR 0.65). 99% hazy, calcified ostial/proximal circumflex Subtotal latemid RCA occlusion, occluded right PDA. Right PLB's fill partially via left to right collaterals 2. Normal intracardiac filling pressure 3. LVEF 35 to 40% with inferior akinesis transfer for evaluation of bypass surgery. Patient is previously received care from [facility] and wishes to return. Cardiology spoke with Dr. Mesa of cardiothoracic surgery who agrees to accept care of patient. In interim continue nitroglycerin infusion 15 mcg/min (250 ml q24 hours) Resume heparin IV 850 units/hour (17 ml/hr) Prescriptions: Continued omeprazole 20 mg Tablet,Delayed Release (Dr/Ec) 20 mg PO DAILY RF: 0 nitroglycerin 0.4 mg Tablet, Sublingual 0.4 mg sublingual DIRECTED RF: 0 Discontinued isosorbide mononitrate 30 mg Tablet Extended Release 24 Hr 30 mg PO DAILY RF: 0 clopidogrel [Plavix] 75 mg Tablet 75 mg PO DAILY RF: 0 felodipine 10 mg Tablet Extended Release 24 Hr 10 mg PO DAILY RF: 0 Stand-Alone Forms: Call Back Authorization, [facility] Discharge Orders: Discharge Order (Routine); Ordered 06/27/18 Ordered By: Chele Mustafa Admission Data Admit Date/Time: 06/27/18 01:11 Attending Provider: Chele Mustafa Admit Provider: Darwin Phillips Primary Care Provider: Shayna Tyson. Other Providers: Darwin Phillips ; Remi Capps ; Guillermo Rios ; Jose Teran ; Herve Mccord ; Naresh Aguilar ; Luis Pulido ; Diamante Chawla ; Lenore Neal ; Naresh Powell. ; Gita Morales Service: Intensive Care Unit
[2018-06-27] MEDS ORDERED: Heparin IV Low Dose *NO* Bolus IV ONE (15:00)
[2018-06-27 15:18] VITALS: PULSE 51
== END 2018-06-27 16:14 | disposition short-term general hospital (02) | DRG 287 ==
LOC: ED 22:00 → SUATTDRO 06-27 01:11 → 1E 06-27 01:11